=== PATIENT | female | born 1990 | race Caucasian/White ===

== ENCOUNTER 2022-05-20 11:08 | Emergency (ER) | payer OTHER, BC ==
[2022-05-20 11:15] VITALS: BP 121/80; PULSE 91; RESP 18; TEMP 98.1; BMI 25.6
== END 2022-05-20 11:54 | disposition home or self-care (01) ==
LOC: JERFT 11:08
DX: R23.2 Flushing (principal)
CPT/HCPCS: 99281-25

== ENCOUNTER 2024-08-07 16:00 | Inpatient (IN) | payer BC ==
[2024-08-07] MEDS: ELECTROLYTE-148 SOLN 1,000 ML IV SCH (16:30)
[2024-08-07 17:00] VITALS: BMI 33.6
[2024-08-07 17:02] LABS: BASOPHILS # 0.02 x10^3/uL (0.01-0.08); EOSINOPHIL % 0.4 % (0.7-5.8); EOSINOPHILS # 0.04 x10^3/uL (0.04-0.36); HEMATOCRIT 34.9 % (34.1-44.9); HEMOGLOBIN 11.8 g/dL (11.2-15.7); MCHC 33.8 g/dl (32.2-35.5); MEAN CELL VOLUME 89.9 fl (79.4-94.8); MEAN PLT VOLUME 9.9 fl (9.4-12.3); MONOCYTE # 1.21 x10^3/uL (0.24-0.86); MONOCYTE % 10.7 % (4.7-12.5); PLATELET COUNT 220 x10^3/uL (182-369)
[2024-08-07] MEDS ORDERED: FENTANYL/BUPIVACAINE/NS/PF - PCEA - 50 ML DISP.SYRIN EP ONE (17:06)
[2024-08-07 17:16] LABS: INR 0.96 (0.83-1.09); PROTHROMBIN TIME (PATIENT) 10.6 SEC (9.7-13.0)
[2024-08-07 17:18] LABS: ACTIVATED PTT 24.6 SECONDS (25.2-36.5)
[2024-08-07] MEDS: FENTANYL/BUPIVACAINE/NS/PF - PCEA - 50 ML DISP.SYRIN EP SCH (17:25)
[2024-08-07] MEDS ORDERED: NALOXONE HCL 0.4 MG/ML VIAL IVPUSH PRN (17:39)
[2024-08-07 18:22] LABS: POTASSIUM 3.7 mmol/L (3.5-5.1)
[2024-08-07] MEDS ORDERED: OXYTOCIN 30 UNITS in 0.9% NS 30 UNIT/500 ML INFUS.BAG IVPB ONE (18:23)
[2024-08-07 18:24] LABS: BLOOD UREA NITROGEN 12.1 mg/dL (7-18); CALCIUM 8.7 mg/dL (8.5-10.1)
[2024-08-07] MEDS: OXYTOCIN 30 UNITS in 0.9% NS 30 UNIT/500 ML INFUS.BAG IVPB SCH (18:25)
[2024-08-07 18:28] LABS: CREATININE 0.6 mg/dL (0.55-1.3)
[2024-08-07] MEDS ORDERED: OXYTOCIN 20 UNITS in 0.9% NS 20 UNIT/1,000 ML INFUS.BAG IV ONE (21:33)
[2024-08-07] MEDS ORDERED: LIDOCAINE HCL 1% PRESERVATIVE FREE - 30ML VIAL ONE (21:33)
[2024-08-07] MEDS: OXYTOCIN 20 UNITS in 0.9% NS 20 UNIT/1,000 ML INFUS.BAG IV SCH (22:25)
[2024-08-07 22:35] LABS: CORD BASE EXCESS -6.7 mmol/L (0-2); CORD HCO3 19.2 mmHg (20-29); CORD PCO2 40.1 mmHg (30-78); CORD pH 7.299 (7.14-7.44)
[2024-08-07 22:36] LABS: CORD BASE EXCESS -6.8 mmol/L (0-2); CORD HCO3 19.4 mmHg (20-29); CORD PCO2 41.5 mmHg (30-78); CORD pH 7.288 (7.14-7.44)
[2024-08-07] MEDS ORDERED: WITCH HAZEL 50% (TUCKS) 40 PAD/JAR PAD TP PRN (22:41)
[2024-08-07] MEDS ORDERED: oxyCODONE HCL 5 MG TABLET PO PRN (22:41)
[2024-08-07] MEDS ORDERED: BISACODYL 10 MG SUPP.RECT RC PRN (22:41)
[2024-08-08] MEDS ORDERED: IBUPROFEN 600 MG TABLET (FP) PO ONE (00:30)
[2024-08-08] MEDS: IBUPROFEN 600 MG TABLET (FP) PO PRN (00:32)
[2024-08-08] MEDS: METHYLERGONOVINE MALEATE 0.2 MG/1 ML AMP IM PRN (00:39)
[2024-08-08 08:08] LABS: ABSOLUTE IMMATURE GRANULOCYTES 0.15 x10^3/uL (0.0-0.031); BASOPHILS # 0.03 x10^3/uL (0.01-0.08); EOSINOPHIL % 0.3 % (0.7-5.8); EOSINOPHILS # 0.05 x10^3/uL (0.04-0.36); HEMATOCRIT 30.8 % (34.1-44.9); HEMOGLOBIN 10.3 g/dL (11.2-15.7); MCHC 33.4 g/dl (32.2-35.5); MEAN CELL VOLUME 90.1 fl (79.4-94.8); MEAN PLT VOLUME 10.1 fl (9.4-12.3); MONOCYTE # 1.77 x10^3/uL (0.24-0.86); MONOCYTE % 10.4 % (4.7-12.5); PLATELET COUNT 207 x10^3/uL (182-369); RDW 14.1 % (12.1-16.8)
[2024-08-08] MEDS: PRENATAL VITAMINS W/ FOLIC ACID TABLET (FP) PO SCH (09:36)
[2024-08-08] MEDS: FERROUS SO4 325 MG TABLET (FP) PO SCH (09:36)
[2024-08-08] MEDS: ACETAMINOPHEN 325 MG TABLET (FP) PO PRN (09:47)
[2024-08-08] MEDS: ENOXAPARIN NA (PORCINE) 40 MG/0.4 ML DISP.SYRIN SQ SCH (09:52)
[2024-08-08 12:32] LABS: POC NITRAZINE POS
[2024-08-08] MEDS: SENNOSIDES/DOCUSATE COMBO (SENNA PLUS) TABLET (UD) PO PRN (20:33)
[2024-08-09 09:07] VITALS: BP 119/71; PULSE 86; RESP 17; TEMP 97.3
[2024-08-09] MEDS: BENZOCAINE 20% 57 GM BOTTLE TP PRN (11:48)
[2024-08-09] MEDS: BENZOCAINE 28 GM HEMORRHOIDAL OINTMENT TP PRN (11:48)
== END 2024-08-09 13:30 | disposition home or self-care (01) | DRG 807 ==
LOC: JLDR 16:00 → J3W 08-08 01:21
PROVIDERS: ADMIT Obstetrics & Gynecology; ATTEND Obstetrics & Gynecology
PROC: 10E0XZZ Delivery of Products of Conception, External Approach (ICD-10-PCS; principal; 2024-08-07)
PROC: 0KQM0ZZ Repair Perineum Muscle, Open Approach (ICD-10-PCS; 2024-08-07)
DX: O70.1 Second degree perineal laceration during delivery (principal); Z37.0 Single live birth; Z3A.39 39 weeks gestation of pregnancy
CPT/HCPCS: 36415; 36600; 59409; 80048; 82803; 83986-QW; 85025; 85610; 85730; 86780; 86850; 86900; 86901